=== PATIENT | female | born 1985 | race Caucasian/White ===

== ENCOUNTER → 2020-07-23 | Outpatient (REF) | payer OTHER ==
[2020-07-23 20:04] LABS: BASO % 0.2 % (0.0-1.0); EOS # 0.1 10^3/uL (0.0-0.5); EOS % 1.1 % (0.0-3.0); HEMATOCRIT 46.6 % (36.0-47.0); LYMPH % 35.3 % (24.0-44.0); MEAN CORPUSCULAR HEMOGLOBIN 29.2 pg (27.0-33.0); MEAN CORPUSCULAR HGB CONC 32.2 g/dl (32.0-36.5); MEAN CORPUSCULAR VOLUME 90.8 fl (80.0-96.0); MONO # 0.6 10^3/uL (0.0-0.8); MONO % 6.6 % (0.0-8.0); NEUTROPHILS # 4.8 10^3/uL (1.5-8.5); NEUTROPHILS % 56.6 % (36.0-66.0); PLATELET COUNT, AUTOMATED 202 10^3/uL (150-450); RED BLOOD COUNT 5.13 10^6/uL (4.00-5.40); WHITE BLOOD COUNT 8.5 10^3/uL (4.0-10.0)
[2020-07-23 20:11] LABS: BLOOD UREA NITROGEN 10 MG/DL (7-18); CALCIUM LEVEL 8.5 MG/DL (8.5-10.1); CARBON DIOXIDE LEVEL 27 MEQ/L (21-32); CHLORIDE LEVEL 106 MEQ/L (98-107); GLOMERULAR FILTRATION RATE > 60.0 (>60); GLUCOSE, FASTING 80 MG/DL (70-100); POTASSIUM SERUM 4.3 MEQ/L (3.5-5.1); SODIUM LEVEL 139 MEQ/L (136-145)
== END ==
LOC: M WUC 19:13 → M LAB REF 19:13
PROVIDERS: ATTEND Physician Assistant
DX: R10.30 Lower abdominal pain, unspecified (principal)

== ENCOUNTER → 2020-08-13 | Outpatient (CLI) | payer OTHER ==
--- NOTE | 2020-08-13 18:47 | REP ---
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 This CT examination was performed using the following dose reduction techniques: Automated exposure control, adjustment of mA and/or kv according to the patient's size, and use of iterative reconstruction technique. FINDINGS: Hematuria and right-sided tenderness. There is a 16 mm calculus in the right renal pelvis which may cause intermittent ureteropelvic junction (UPJ) obstruction and associated renal colic. Smaller nonobstructing right renal calculi measuring up to 2 mm are also identified. The left kidney includes 2 mm nonobstructing calculus. No obstructing ureteral calculi are identified bilaterally and the bladder is unremarkable. Liver, spleen, pancreas, gallbladder, and bilateral adrenal glands are normal. The enteric system is without obstruction or acute inflammatory process. Normal terminal ileum and appendix are identified in the right lower quadrant. Pelvis demonstrates normal bladder and age-appropriate uterus/adnexa. No ascites. No free air. No obvious adenopathy. Abdominal aorta without aneurysm. Musculoskeletal structures are intact and without acute osseous abnormality. Lung bases are clear. IMPRESSION: 1. A 16 mm calculus in the right renal pelvis which may cause intermittent UPJ obstruction and subsequent renal colic. Small nonobstructing bilateral renal calculi also identified. 2. Otherwise normal noncontrast CT of the abdomen and pelvis. <Electronically signed by Idris Meier > 08/13/20 [id number]
== END ==
LOC: M RAD 16:44
PROVIDERS: ATTEND Family Medicine
DX: N20.0 Calculus of kidney (principal); R31.0 Gross hematuria; R10.813 Right lower quadrant abdominal tenderness

== ENCOUNTER → 2020-08-23 | Outpatient (CLI) | payer OTHER ==
[~2020-08-23] MED LIST: ESTA0.25 PO; OMEP-218 PO
[2020-08-23 17:58] LABS: HEMATOCRIT 44.8 % (36.0-47.0); HEMOGLOBIN 14.7 g/dl (12.0-15.5); MEAN CORPUSCULAR HEMOGLOBIN 29.5 pg (27.0-33.0); MEAN CORPUSCULAR HGB CONC 32.8 g/dl (32.0-36.5); MEAN CORPUSCULAR VOLUME 89.8 fl (80.0-96.0); PLATELET COUNT, AUTOMATED 183 10^3/uL (150-450); RED BLOOD COUNT 4.99 10^6/uL (4.00-5.40); WHITE BLOOD COUNT 7.1 10^3/uL (4.0-10.0)
[2020-08-23 18:03] LABS: APPEARANCE, URINE CLOUDY (CLEAR); BACTERIA, URINE AUTO NEGATIVE (NEGATIVE); BILIRUBIN, URINE AUTO NEGATIVE (NEGATIVE); BLOOD, URINE BLOOD 3+ (NEGATIVE); COLOR, URINE YELLOW (YELLOW); GLUCOSE, URINE (UA) AUTO NEGATIVE (NEGATIVE); KETONE, URINE AUTO NEGATIVE (NEGATIVE); LEUKOCYTE ESTERASE, URINE AUTO 2+ (NEGATIVE); MUCUS, URINE SMALL (NEGATIVE); NITRITE, URINE AUTO NEGATIVE (NEGATIVE); PROTEIN, URINE AUTO 2+ mg/dL (NEGATIVE); RBC, URINE AUTO TNTC /HPF (0-3); SPECIFIC GRAVITY URINE AUTO 1.021 (1.002-1.035); SQUAMOUS EPITHELIAL CELL UR AU 0 /HPF (0-6); WBC, URINE AUTO 23 /HPF (0-3)
[2020-08-23 18:09] LABS: INR 1.01; PARTIAL THROMBOPLASTIN TIME 25.9 SECONDS (24.2-38.5); PROTHROMBIN TIME 13.5 SECONDS (12.5-14.3)
[2020-08-23 18:32] LABS: BLOOD UREA NITROGEN 12 MG/DL (7-18); CALCIUM LEVEL 8.9 MG/DL (8.5-10.1); CARBON DIOXIDE LEVEL 29 MEQ/L (21-32); CHLORIDE LEVEL 107 MEQ/L (98-107); CREATININE FOR GFR 0.76 MG/DL (0.55-1.30); GLOMERULAR FILTRATION RATE > 60.0 (>60); GLUCOSE, FASTING 87 MG/DL (70-100); HCG, SERUM QUALITATIVE NEGATIVE (NEGATIVE); POTASSIUM SERUM 4.2 MEQ/L (3.5-5.1); SODIUM LEVEL 139 MEQ/L (136-145)
== END ==
LOC: M LAB 17:26
PROVIDERS: ATTEND Nurse Practitioner Women's Health
DX: Z01.818 Encounter for other preprocedural examination (principal); N20.0 Calculus of kidney

== ENCOUNTER → 2020-08-25 | Outpatient (CLI) | payer OTHER | LOC: M LABSMTC 11:01 | PROVIDERS: ATTEND Anesthesiology | DX: Z20.828 Contact with and (suspected) exposure to other viral communicable diseases (principal) ==

== ENCOUNTER 2020-08-30 06:37 | Day surgery (SDC) | payer OTHER ==
[~2020-08-30] VITALS: Ht 154.9 cm; Wt 79.7 kg
[~2020-08-30 06:37] MED LIST changes: +LIDOCAINE 1% MDV 20ML VIAL SQ PRN; +LR 1,000 ML IV ONE; +ceFAZolin SOD 2 GM in IV 1 EA IV ONE
[2020-08-30] MEDS ORDERED: ONDANSETRON 4MG/2ML VIAL As Ordered ONE ×2 (07:29→10:39)
[2020-08-30] MEDS ORDERED: LIDOCAINE 2% 100MG/5ML SDV (FOR ANES.) As Ordered ONE (07:29)
[2020-08-30] MEDS ORDERED: propofoL 200 MG/20 ML VIAL As Ordered ONE ×2 (07:29→09:16)
[2020-08-30] MEDS ORDERED: fentaNYL 100 MCG/2 ML INJECTION (J3010) As Ordered ONE (07:30)
[2020-08-30] MEDS ORDERED: MIDAZOLAM INJ 2MG/2ML VIAL (J2250 PER 1MG) As Ordered ONE (07:30)
--- NOTE | 2020-08-30 08:04 | REP ---
INDICATION: KIDNEY STONE- KUB PRIOR TO SDC. COMPARISON: Abdomen/pelvis CT dated 08/13/2020. TECHNIQUE: Single AP supine view of the abdomen. FINDINGS: There is a 16 mm calcification projected over the right kidney, similar to the comparison study. There is a 2 The bowel gas pattern is normal. Skeletal structures and soft tissues are otherwise unremarkable. IMPRESSION: Renal calculi as described. <Electronically signed by Dominick Esparza > 08/30/20 0801
[2020-08-30] MEDS ORDERED: LIDOCAINE 2% 5ML JELLY UROJET As Ordered ONE (08:24)
[2020-08-30] MEDS ORDERED: FLOM0.4C39 PO (09:28)
[2020-08-30] MEDS ORDERED: ULTR50TA8 PO (09:28)
[2020-08-30] MEDS ORDERED: OXYB5TAB10 PO (09:28)
[2020-08-30] MEDS ORDERED: traMADol 50 MG TAB PO PRN (10:15)
[2020-08-30] MEDS ORDERED: oxyBUTYnin 5 MG TAB PO PRN (10:15)
--- NOTE | 2020-08-30 10:16 | RO ---
OPERATIVE NOTE DATE OF OPERATION: 08/30/2020 PREOPERATIVE DIAGNOSIS: Kidney stone. POSTOPERATIVE DIAGNOSIS: Kidney stone, bladder tumor. PROCEDURE: Right extracorporeal shock wave lithotripsy, cystoscopy with transurethral resection of bladder tumor, right ureteral stent placement. SURGEON: Jaswinder Weston MD PORTFOLIO SPECIALIST: None. ANESTHESIA: MAC. OPERATIVE INDICATIONS: This is a 35-year-old female who had approximately 1.5 cm stone. She is brought to the operating room today for right-sided extracorporeal shock wave lithotripsy and right ureteral stent placement. DESCRIPTION OF PROCEDURE: The patient was brought to the operating room and MAC anesthesia was administered. Prophylactic antibiotics were infused. She was placed in the supine position in preparation for right-sided extracorporeal shock wave lithotripsy. She was also prepped and draped for cystoscopy first. A rigid cystoscope was inserted in urethral meatus and advanced to the bladder. Once inside the bladder the right ureteral orifice was identified. Of note, over the right ureteral orifice there appeared to be a collection of small papillary tumors. The rest of the bladder was examined and no other abnormalities were seen. At this point a guidewire was advanced up the right collecting system. I then utilized cold cup biopsy forceps to resect all the tumor from over top of the right ureteral orifice. I then cauterized that area for good hemostasis. Once that was done I utilized wire to advance a 6-[place] x 22-32 cm JJ ureteral stent up the right collecting system. The wire was removed and there were adequate curls of stent in right renal pelvis and bladder. The bladder was emptied of all fluids. The patient was then repositioned for right-sided extracorporeal shock wave lithotripsy. Fluoroscopy was utilized to monitor stone position and fragmentation throughout the procedure. Shock waves were then delivered to the right-sided kidney stone ungated. There were no arrhythmias. The stone did appear to fragment well. After 2500 shocks the procedure was concluded. The patient was awakened from anesthesia and transported to the recovery room in stable condition. ESTIMATED BLOOD LOSS: 5 mL. COMPLICATIONS: None. SPECIMEN: Bladder tumor. PLAN: The patient will follow up in clinic in a week or two for stent removal with imaging prior. We will also discuss results of her pathology.
[2020-08-30] MEDS ORDERED: oxyCODONE 5MG TAB PO PRN (10:40)
[2020-08-30] MEDS ORDERED: ONDANSETRON 4MG/2ML VIAL IV PRN (10:40)
[2020-08-30] MEDS ORDERED: HYDROMORPHONE HCL 0.5 MG/ 0.5 ML SYRINGE (J1170 PER 1) IV PRN (10:40)
[2020-08-30] MEDS ORDERED: fentaNYL 100 MCG/2 ML INJECTION (J3010) IV PRN (10:40)
[2020-08-30] MEDS ORDERED: LR 1,000 ML IV SCH (10:40)
[2020-08-30 11:05] VITALS: BP 137/78
[2020-08-30] MEDS ORDERED: ACETAMINOPHEN *IV* 1,000 MG IV ONE ×2 (11:55)
== END 2020-08-30 12:33 | disposition home or self-care (01) ==
LOC: M SDC 06:37
PROVIDERS: ATTEND Urology
DX: N20.0 Calculus of kidney (principal); C67.9 Malignant neoplasm of bladder, unspecified; K21.9 Gastro-esophageal reflux disease without esophagitis; Z79.899 Other long term (current) drug therapy
CPT/HCPCS: 50590; 52234; 52332; 74018; 81025; 88305; C2617; J0131; J0690; J2250; J2405; J3010

== ENCOUNTER → 2020-09-04 | Outpatient (CLI) | payer OTHER ==
[~2020-09-04] MED LIST changes: +FLOM0.4C39 PO; -LIDOCAINE 1% MDV 20ML VIAL SQ PRN; -LR 1,000 ML IV ONE; +OXYB5TAB10 PO; +ULTR50TA8 PO; -ceFAZolin SOD 2 GM in IV 1 EA IV ONE
--- NOTE | 2020-09-05 04:32 | REPPI ---
INDICATION: KIDNEY STONE COMPARISON: 08/30/2020 TECHNIQUE: Supine view of the abdomen and pelvis. FINDINGS: Right ureteral stent in satisfactory position. Right intrarenal calculi are identified. Left kidney/ureter is difficult to evaluate due to technique and overlying bowel gas. No evidence for bowel obstruction. No organomegaly. Skeletal structures intact. IMPRESSION: Right ureteral stent and right renal calculi. <Electronically signed by Idris Meier > 09/05/20 042
== END ==
LOC: M PLAIMG 13:47
PROVIDERS: ATTEND Urology
DX: N20.0 Calculus of kidney (principal); Z96.0 Presence of urogenital implants

== ENCOUNTER → 2020-09-19 | Outpatient (REF) | payer OTHER ==
[2020-09-26 15:12] LABS: CA Oxalate Dihy 80 % (.); Size 2x2 mm (.)
== END ==
LOC: M SMT 17:31
PROVIDERS: ATTEND Urology
DX: N20.0 Calculus of kidney (principal)

== ENCOUNTER → 2020-10-08 | Outpatient (CLI) | payer OTHER ==
[~2020-10-08] MED LIST changes: +ISOVUE-370 76% 100ML VIAL As Ordered ONE
--- NOTE | 2020-10-08 10:29 | REP ---
INDICATION: BLADDER CANCER. COMPARISON: 08/13/2020 TECHNIQUE: Axial precontrast, contrast-enhanced and delayed images from the lung bases to the pubic symphysis using 100 cc Isovue 370 intravenous contrast material. Coronal and sagittal reformations obtained. This CT examination was performed using the following dose reduction techniques: Automated exposure control, adjustment of mA and/or kv according to the patient's size, and the use of iterative reconstruction technique. FINDINGS: Current examination now demonstrates cluster of small 2 medium-sized calculi within the right renal pelvis likely secondary to lithotripsy and without perinephric stranding, hydroureteronephrosis or obstructing ureteral calculus. The left kidney includes 2 mm nonobstructing lower pole calculus. The kidneys demonstrate normal symmetric parenchymal enhancement and normal excretion to the collecting system including normal appearance to the bilateral renal pelvises, ureters, and bladder. No obvious bladder mass or bladder wall thickening noted. Liver, spleen, pancreas, gallbladder, and bilateral adrenal glands are normal. The enteric system including stomach, small, and large bowel appears normal. No evidence for obstruction or acute inflammatory process. Pelvis demonstrates normal bladder and age-appropriate uterus/adnexa. No ascites. No free air. No intraperitoneal or retroperitoneal adenopathy. Abdominal aorta and vasculature appear normal. Musculoskeletal structures are intact and without acute osseous abnormality. IMPRESSION: Nonobstructing intrarenal calculi (right greater than left). Otherwise normal appearance to the urinary tract system including normal appearance of the bladder without evidence for bladder mass or bladder wall thickening. <Electronically signed by Idris Meier > 10/08/20 [id number]
== END ==
LOC: M RAD 09:31
PROVIDERS: ATTEND Urology
DX: C67.9 Malignant neoplasm of bladder, unspecified (principal); N20.2 Calculus of kidney with calculus of ureter
CPT/HCPCS: 74178; Q9967

== ENCOUNTER → 2020-11-28 | Outpatient (CLI) | payer OTHER ==
[~2020-11-28] MED LIST changes: -ISOVUE-370 76% 100ML VIAL As Ordered ONE
--- NOTE | 2020-11-28 14:46 | REPPI ---
INDICATION: N20.0 KIDNEY CALCULI R31.9 HEMATURIA. COMPARISON: None. FINDINGS: KUB shows the intestinal gas pattern to be nonspecific. The organ silhouettes insofar as delineated are unremarkable. There is no evidence of free intraperitoneal air. In the right mid abdomen approximately at the level of the right transverse process of L3 there is a 6 mm size calcification possibly representing a ureterolith. This was not seen on the prior KUB of 09/04/2020, however, a double pigtail stent was seen on that prior exam. IMPRESSION: Possible proximal right ureterolith as described above. Other right-sided renal calcifications could be obscured by the large amount of colonic content seen superimposed over the mid polar and inferior pole region of the right kidney. <Electronically signed by Kashif Shell > 11/28/20 [id number]
[2020-11-28 17:07] LABS: APPEARANCE, URINE HAZY (CLEAR); BACTERIA, URINE AUTO 1+ (NEGATIVE); BILIRUBIN, URINE AUTO NEGATIVE (NEGATIVE); BLOOD, URINE BLOOD NEGATIVE (NEGATIVE); COLOR, URINE YELLOW (YELLOW); GLUCOSE, URINE (UA) AUTO NEGATIVE (NEGATIVE); KETONE, URINE AUTO NEGATIVE (NEGATIVE); LEUKOCYTE ESTERASE, URINE AUTO 2+ (NEGATIVE); MUCUS, URINE SMALL (NEGATIVE); NITRITE, URINE AUTO NEGATIVE (NEGATIVE); PROTEIN, URINE AUTO NEGATIVE (NEGATIVE); RBC, URINE AUTO 6 /HPF (0-3); SPECIFIC GRAVITY URINE AUTO 1.011 (1.002-1.035); SQUAMOUS EPITHELIAL CELL UR AU 4 /HPF (0-6); UROBILINOGEN, URINE AUTO 0.2 mg/dL (0.0-2.0); WBC, URINE AUTO 16 /HPF (0-3)
== END ==
LOC: M PLAIMG 13:56
PROVIDERS: ATTEND Urology
DX: N20.0 Calculus of kidney (principal); R31.9 Hematuria, unspecified

== ENCOUNTER → 2020-12-17 | Outpatient (REF) | payer OTHER | LOC: M SMT 13:22 | PROVIDERS: ATTEND Urology | DX: C67.9 Malignant neoplasm of bladder, unspecified (principal) ==

== ENCOUNTER → 2021-03-22 | Outpatient (REF) | payer OTHER | LOC: M SMT 18:37 | PROVIDERS: ATTEND Urology | DX: C67.9 Malignant neoplasm of bladder, unspecified (principal) ==

== ENCOUNTER → 2021-05-14 | Outpatient (REF) | payer OTHER ==
[2021-05-14 17:59] LABS: AMORPHOUS SEDIMENT SMALL (NEGATIVE); APPEARANCE, URINE CLOUDY (CLEAR); BACTERIA, URINE AUTO NEGATIVE (NEGATIVE); BILIRUBIN, URINE AUTO NEGATIVE (NEGATIVE); BLOOD, URINE BLOOD 2+ (NEGATIVE); COLOR, URINE YELLOW (YELLOW); GLUCOSE, URINE (UA) AUTO NEGATIVE (NEGATIVE); KETONE, URINE AUTO NEGATIVE (NEGATIVE); LEUKOCYTE ESTERASE, URINE AUTO NEGATIVE (NEGATIVE); MUCUS, URINE SMALL (NEGATIVE); NITRITE, URINE AUTO NEGATIVE (NEGATIVE); PROTEIN, URINE AUTO 1+ mg/dL (NEGATIVE); RBC, URINE AUTO 161 /HPF (0-3); SPECIFIC GRAVITY URINE AUTO 1.014 (1.002-1.035); SQUAMOUS EPITHELIAL CELL UR AU 2 /HPF (0-6); UROBILINOGEN, URINE AUTO 0.2 mg/dL (0.0-2.0); WBC, URINE AUTO 4 /HPF (0-3)
== END ==
LOC: M SMT 17:31
PROVIDERS: ATTEND Urology
DX: N39.0 Urinary tract infection, site not specified (principal)

== ENCOUNTER → 2021-05-17 | Outpatient (CLI) | payer OTHER ==
[~2021-05-17] MED LIST changes: +OMEP-173 PO; -OMEP-218 PO
== END ==
LOC: M RAD 11:22
PROVIDERS: ATTEND Urology
DX: N20.0 Calculus of kidney (principal)

== ENCOUNTER → 2021-05-17 | Outpatient (CLI) | payer OTHER ==
[~2021-05-17] MED LIST changes: -OMEP-173 PO; +OMEP-218 PO
[2021-05-17 17:12] LABS: HEMATOCRIT 41.5 % (36.0-47.0); HEMOGLOBIN 13.9 g/dl (12.0-15.5); MEAN CORPUSCULAR HEMOGLOBIN 29.8 pg (27.0-33.0); MEAN CORPUSCULAR HGB CONC 33.5 g/dl (32.0-36.5); MEAN CORPUSCULAR VOLUME 88.9 fl (80.0-96.0); PLATELET COUNT, AUTOMATED 208 10^3/uL (150-450); RED BLOOD COUNT 4.67 10^6/uL (4.00-5.40); WHITE BLOOD COUNT 9.2 10^3/uL (4.0-10.0)
[2021-05-17 17:26] LABS: INR 1.33; PROTHROMBIN TIME 16.9 SECONDS (12.7-14.5)
[2021-05-17 17:28] LABS: PARTIAL THROMBOPLASTIN TIME 48.5 SECONDS (25.9-37.0)
[2021-05-17 17:30] LABS: BLOOD UREA NITROGEN 11 MG/DL (7-18); CALCIUM LEVEL 9.3 MG/DL (8.5-10.1); CARBON DIOXIDE LEVEL 30 MEQ/L (21-32); CHLORIDE LEVEL 105 MEQ/L (98-107); CREATININE FOR GFR 0.83 MG/DL (0.55-1.30); GLOMERULAR FILTRATION RATE > 60.0 (>60); GLUCOSE, FASTING 94 MG/DL (70-100); HCG, SERUM QUALITATIVE NEGATIVE (NEGATIVE); SODIUM LEVEL 139 MEQ/L (136-145)
== END ==
LOC: M PLALAB 14:39
PROVIDERS: ATTEND Nurse Practitioner Women's Health
DX: Z01.818 Encounter for other preprocedural examination (principal); N20.0 Calculus of kidney

== ENCOUNTER → 2021-05-20 | Outpatient (CLI) | payer OTHER ==
[~2021-05-20] MED LIST changes: +OMEP-173 PO; -OMEP-218 PO
== END ==
LOC: M LABSMTC 12:31
PROVIDERS: ATTEND Anesthesiology
DX: Z01.812 Encounter for preprocedural laboratory examination (principal)

== ENCOUNTER 2021-05-22 09:22 | Day surgery (SDC) | payer OTHER ==
[~2021-05-22] VITALS: Ht 154.9 cm; Wt 83.0 kg
[~2021-05-22 09:22] MED LIST changes: +CONRAY-60 60% 50ML VIAL (Q9961) As Ordered ONE; +LR 1,000 ML IV ONE; -OMEP-173 PO; +OMEP-218 PO; +ceFAZolin SOD 2 GM in IV 1 EA IV ONE
[2021-05-22] MEDS ORDERED: propofoL 200 MG/20 ML VIAL As Ordered ONE (09:57)
[2021-05-22] MEDS ORDERED: ONDANSETRON 4MG/2ML VIAL As Ordered ONE (09:57)
[2021-05-22] MEDS ORDERED: LIDOCAINE 2% 100MG/5ML SDV (FOR ANES.) As Ordered ONE (09:57)
[2021-05-22] MEDS ORDERED: dexameTHASONE 4 MG/ML 1ML VIAL (J1100 PER 1MG) As Ordered ONE (09:57)
[2021-05-22] MEDS ORDERED: MIDAZOLAM INJ 2MG/2ML VIAL (J2250 PER 1MG) As Ordered ONE (09:58)
[2021-05-22] MEDS ORDERED: fentaNYL 100 MCG/2 ML INJECTION (J3010) As Ordered ONE ×2 (09:58→11:43)
[2021-05-22] MEDS ORDERED: OXYB5TAB10 PO (10:45)
[2021-05-22] MEDS ORDERED: METOCLOPRAMIDE INJ 10MG/2ML VIAL (J2765 PER 1) As Ordered ONE (10:54)
[2021-05-22] MEDS ORDERED: ACETAMINOPHEN 1000MG 100ML IV BTL (OFIRMEV) (J0131 PER 10MG) As Ordered ONE (11:01)
[2021-05-22] MEDS ORDERED: traMADol 50 MG TAB PO PRN (13:05)
[2021-05-22] MEDS ORDERED: METOCLOPRAMIDE INJ 10MG/2ML VIAL (J2765 PER 1) IV PRN (13:05)
[2021-05-22] MEDS ORDERED: LR 1,000 ML IV SCH (13:05)
[2021-05-22] MEDS ORDERED: oxyBUTYnin 5 MG TAB PO PRN (13:05)
[2021-05-22] MEDS ORDERED: ONDANSETRON 4MG/2ML VIAL IV PRN (13:05)
[2021-05-22] MEDS ORDERED: oxyCODONE 5MG TAB PO PRN (13:05)
[2021-05-22] MEDS ORDERED: fentaNYL 100 MCG/2 ML INJECTION (J3010) IV PRN (13:05)
--- NOTE | 2021-05-22 13:08 | REP ---
INDICATION: RIGHT STENT PLACEMENT. COMPARISON: None. TECHNIQUE: Two spot films were obtained during right-sided double pigtail stent placement. 12 seconds of fluoroscopy time was provided Dr. Weston for the procedure. FINDINGS: There is a small amount of radiographic contrast material is seen opacifying the right renal collecting system. The proximal portion of the stent is seen in the region of the renal pelvis and the distal portion is seen in the urinary bladder. IMPRESSION: As above. <Electronically signed by Kashif Shell > 05/22/21 [id number]
[2021-05-22 13:35] VITALS: BP 127/67
[2021-05-22] MEDS ORDERED: IBUPROFEN 600MG TAB PO STA (13:42)
--- NOTE | 2021-05-22 16:30 | RO ---
OPERATIVE NOTE DATE OF OPERATION: 05/22/2021 PREOPERATIVE DIAGNOSIS: Right kidney stones. POSTOPERATIVE DIAGNOSIS: Right kidney stones. PROCEDURE: Cystoscopy, right ureteroscopy with laser lithotripsy and basket extraction of stones, right retrograde pyelogram with intraop interpretation of images, right ureteral stent placement. SURGEON: Jaswinder Weston MD SET AND EXHIBIT DESIGNER: None. ANESTHESIA: General. OPERATIVE INDICATIONS: This is a 36-year-old female who was found to have intermittent obstruction from an approximately 8 mm right renipelvic stone. She had additional stones measuring up to 8-9 mm in the kidney. She was brought to the operating room today for treatment. DESCRIPTION OF PROCEDURE: The patient was brought to the operating room and general anesthesia was induced. Prophylactic antibiotics were infused. She was placed in dorsal lithotomy position and prepped and draped in usual sterile fashion. Rigid cystoscope was inserted in the urethral meatus and advanced into the bladder. A guidewire was advanced up the right collecting system. I advanced the ureteral access sheath up the right collecting system. I went up the access sheath with flexible ureteroscope and within the right kidney approximately three stones were seen, each measuring around 8 mm in size. A 272 micron laser fiber was utilized to fragment the stones into smaller pieces. I started basketing the fragments and of note, within the mid ureter, the fragments kept getting caught up. It was very difficult to actually get the stones out through the mid ureter and it did cause minor trauma to the lateral aspect of the ureter. Because of this, after removing those fragments, the decision was made not to try to remove the remaining fragments inside the kidney. I therefore dusted the remainder of the stones into small enough pieces that she should be able to pass. Once it was done a retrograde pyelogram was performed and was notable for mild to moderate right hydronephrosis with no extravasation. I then withdrew the ureteroscope along with the access sheath and no additional stones were seen inside the ureter. I then utilized the guidewire to advance 6-[place]izen [place] x 22-32 cm JJ ureteral stent up the right collecting system. The wire was removed and there were adequate curls of the stent in right renal pelvis and in the bladder. The bladder was emptied of all fluids and this marked the conclusion of the procedure. The patient was taken out of the dorsal lithotomy position, awakened from anesthesia and transported to the recovery room in stable condition. ESTIMATED BLOOD LOSS: 10 mL. COMPLICATIONS: None. SPECIMEN: Kidney stone fragments. PLAN: I will leave the patient's stent in for approximately 4 weeks to allow for the ureter to heal. We will then take her stent out in the office and get follow up ultrasound a few weeks later given concerns she might form a stricture in the narrow area in the mid ureter. MANUELA
[2021-05-29 14:13] LABS: CA Oxalate Dihy 80 % (.); Ca Ox Monohydrate 10 % (.); Size 6x5 mm (.)
== END 2021-05-22 13:56 | disposition home or self-care (01) ==
LOC: M SDC 09:22
PROVIDERS: ATTEND Urology
DX: N20.0 Calculus of kidney (principal); N99.71 Accidental puncture and laceration of a genitourinary system organ or structure during a genitourinary system procedure; R01.1 Cardiac murmur, unspecified; K21.9 Gastro-esophageal reflux disease without esophagitis; Z85.51 Personal history of malignant neoplasm of bladder; Z79.899 Other long term (current) drug therapy; Z79.3 Long term (current) use of hormonal contraceptives
CPT/HCPCS: 52356; 74420; 81025; 82365; 88300; C1769; C2617; J0131; J0690; J1100; J2250; J2405; J2765; J3010; Q9961; U0002

== ENCOUNTER → 2021-06-14 | Outpatient (REF) | payer OTHER ==
[~2021-06-14] MED LIST changes: -CONRAY-60 60% 50ML VIAL (Q9961) As Ordered ONE; -LR 1,000 ML IV ONE; -ceFAZolin SOD 2 GM in IV 1 EA IV ONE
[2021-06-14 17:55] LABS: APPEARANCE, URINE CLOUDY (CLEAR); BACTERIA, URINE AUTO NEGATIVE (NEGATIVE); BILIRUBIN, URINE AUTO NEGATIVE (NEGATIVE); BLOOD, URINE BLOOD 3+ (NEGATIVE); COLOR, URINE YELLOW (YELLOW); GLUCOSE, URINE (UA) AUTO NEGATIVE (NEGATIVE); KETONE, URINE AUTO TRACE mg/dL (NEGATIVE); LEUKOCYTE ESTERASE, URINE AUTO 2+ (NEGATIVE); MUCUS, URINE SMALL (NEGATIVE); NITRITE, URINE AUTO NEGATIVE (NEGATIVE); PROTEIN, URINE AUTO 2+ mg/dL (NEGATIVE); RBC, URINE AUTO TNTC /HPF (0-3); SPECIFIC GRAVITY URINE AUTO 1.019 (1.002-1.035); SQUAMOUS EPITHELIAL CELL UR AU 1 /HPF (0-6); UROBILINOGEN, URINE AUTO 0.2 mg/dL (0.0-2.0); WBC, URINE AUTO 44 /HPF (0-3)
== END ==
LOC: M SMT 16:47
PROVIDERS: ATTEND Urology
DX: N39.0 Urinary tract infection, site not specified (principal)

== ENCOUNTER → 2021-08-05 | Outpatient (CLI) | payer OTHER ==
[~2021-08-05] MED LIST changes: +OMEP-173 PO; -OMEP-218 PO
== END ==
LOC: M RAD 14:04
PROVIDERS: ATTEND Urology
DX: N13.5 Crossing vessel and stricture of ureter without hydronephrosis (principal)

== ENCOUNTER → 2021-09-24 | Outpatient (REF) | payer OTHER | LOC: M SMT 18:46 | PROVIDERS: ATTEND Urology | DX: C67.9 Malignant neoplasm of bladder, unspecified (principal) ==

== ENCOUNTER 2021-10-06 10:32 | Emergency (ER) | payer OTHER ==
[~2021-10-06] VITALS: Ht 154.9 cm; Wt 83.3 kg
[2021-10-06] MEDS ORDERED: ONDANSETRON 4MG/2ML VIAL IV ONE (11:40)
[2021-10-06] MEDS ORDERED: KETOROLAC 30 MG/ML 1ML VIAL IV ONE (11:40)
[2021-10-06] MEDS ORDERED: NS 1,000 ML IV ONE (11:40)
[2021-10-06 12:36] LABS: BASO % 0.1 % (0.0-1.0); EOS % 0.1 % (0.0-3.0); HEMATOCRIT 44.3 % (36.0-47.0); HEMOGLOBIN 14.8 g/dl (12.0-15.5); LYMPH # 1.2 10^3/uL (1.5-5.0); LYMPH % 8.9 % (24.0-44.0); MEAN CORPUSCULAR HEMOGLOBIN 29.9 pg (27.0-33.0); MEAN CORPUSCULAR HGB CONC 33.4 g/dl (32.0-36.5); MEAN CORPUSCULAR VOLUME 89.5 fl (80.0-96.0); MONO # 0.4 10^3/uL (0.0-0.8); MONO % 3.1 % (2.0-8.0); NEUTROPHILS # 11.7 10^3/uL (1.5-8.5); NEUTROPHILS % 87.4 % (36.0-66.0); PLATELET COUNT, AUTOMATED 175 10^3/uL (150-450); RED BLOOD COUNT 4.95 10^6/uL (4.00-5.40); WHITE BLOOD COUNT 13.4 10^3/uL (4.0-10.0)
[2021-10-06 13:01] LABS: ALBUMIN 3.5 GM/DL (3.2-5.2); ALT/SGPT 28 U/L (12-78); BILIRUBIN,DIRECT 0.1 MG/DL (0.0-0.2); BILIRUBIN,TOTAL 0.5 MG/DL (0.2-1.0); BLOOD UREA NITROGEN 7 MG/DL (7-18); CALCIUM LEVEL 8.4 MG/DL (8.5-10.1); CARBON DIOXIDE LEVEL 26 MEQ/L (21-32); CHLORIDE LEVEL 104 MEQ/L (98-107); CREATININE FOR GFR 0.73 MG/DL (0.55-1.30); GLOMERULAR FILTRATION RATE > 60.0 (>60); GLUCOSE, FASTING 89 MG/DL (70-100); LIPASE 251 U/L (73-393); POTASSIUM SERUM 4.1 MEQ/L (3.5-5.1); SODIUM LEVEL 135 MEQ/L (136-145)
[2021-10-06] MEDS ORDERED: OXYC-778 PO (13:29)
[2021-10-06] MEDS ORDERED: TAMS1CAP17 PO (13:29)
[2021-10-06] MEDS ORDERED: ONDA4TAB6 PO (13:29)
[2021-10-06 13:44] VITALS: BP 119/56
== END 2021-10-06 14:04 | disposition home or self-care (01) ==
LOC: M ED 10:32
DX: N20.2 Calculus of kidney with calculus of ureter (principal); E87.1 Hypo-osmolality and hyponatremia; E87.6 Hypokalemia; Z79.3 Long term (current) use of hormonal contraceptives
CPT/HCPCS: 74176; 80048; 80076; 81001; 83690; 84702; 85025; 96361; 96374; 96375; 99284; J1885; J2405

== ENCOUNTER → 2022-03-31 | Outpatient (REF) | payer OTHER ==
[~2022-03-31] MED LIST changes: +ONDA4TAB6 PO; +OXYC-778 PO; +TAMS1CAP17 PO
== END ==
LOC: M SMT 15:29
PROVIDERS: ATTEND Urology
DX: C67.9 Malignant neoplasm of bladder, unspecified (principal)

== ENCOUNTER → 2022-10-03 | Outpatient (REF) | payer OTHER | LOC: M SMT 17:08 | PROVIDERS: ATTEND Urology | DX: C67.9 Malignant neoplasm of bladder, unspecified (principal); R89.6 Abnormal cytological findings in specimens from other organs, systems and tissues ==

== ENCOUNTER → 2022-11-14 | Outpatient (CLI) | payer OTHER | LOC: M PLAIMG 15:07 | PROVIDERS: ATTEND Urology | DX: N20.0 Calculus of kidney (principal) ==

== ENCOUNTER → 2023-11-27 | Outpatient (REF) | payer OTHER ==
[~2023-11-27] MED LIST changes: +ONDA-282 PO; -ONDA4TAB6 PO; -OXYB5TAB10 PO; +OXYB5TAB14 PO
== END ==
LOC: M SMT 17:31
PROVIDERS: ATTEND Urology
DX: C67.9 Malignant neoplasm of bladder, unspecified (principal)

== ENCOUNTER → 2024-03-09 | Outpatient (CLI) | payer OTHER ==
[2024-03-09 18:14] LABS: FREE T4 1.35 NG/DL (0.89-1.76)
[2024-03-09 18:15] LABS: THYROID STIMULATING HORMONE 1.926 uIU/ML (0.55-4.78)
== END ==
LOC: M LAB 17:12
PROVIDERS: ATTEND Obstetrics & Gynecology Obstetrics
DX: Z01.419 Encounter for gynecological examination (general) (routine) without abnormal findings (principal); R63.5 Abnormal weight gain

== ENCOUNTER → 2024-06-06 | Outpatient (CLI) | payer OTHER | LOC: M LAB 16:46 | PROVIDERS: ATTEND Obstetrics & Gynecology Obstetrics | DX: N91.2 Amenorrhea, unspecified (principal) ==